=== PATIENT | female | born 1960 | race Native Hawaiian/Other Pacific Islander ===

== ENCOUNTER 2016-10-15 17:25 | Inpatient (IN) | payer OTHER ==
--- NOTE | 2016-10-15 18:12 | C.PDOC ---
History Of Present Illness 56 y/o female presents to the ED with complaints of easy fatigability and generalized weakness for the past several years worsening the past few weeks. Pt with history of low BP, bradycardia, pacemaker in 2011. Pt states ever since had pacemaker, she feels easily fatigued, wakes up with very low blood pressure. Pt had recent cardiac cath, unknown results. Pt also complaining of chest discomfort last night which she usually doesn't have. Denies SOB, fever, vomiting, diarrhea or any other complaints. Time Seen by Provider: 10/15/16 18:00 Chief Complaint (Nursing): Chest Pain History Per: Patient History/Exam Limitations: no limitations Onset/Duration Of Symptoms: Days Current Symptoms Are (Timing): Worse Severity: Moderate Exacerbating Factors: None Alleviating Factors: None Recent travel outside of the [place]: No Past Medical History Reviewed: Historical Data, Nursing Documentation, Vital Signs Vital Signs: Last Vital Signs Temp 98.4 F 10/15/16 17:51 Pulse 64 10/15/16 18:58 Resp 20 10/15/16 18:58 BP 134/57 L 10/15/16 18:58 Pulse Ox 100 10/15/16 18:58 - Medical History PMH: Cardia Arrhythmia, Mitral Valve Prolapse (2011) Family History: States: Unknown Family Hx - Social History Hx Alcohol Use: No Hx Substance Use: No - Immunization History Hx Tetanus Toxoid Vaccination: No Hx Influenza Vaccination: No Review Of Systems Except As Marked, All Systems Reviewed And Found Negative. Constitutional: Positive for: Weakness, Other (fatigue). Negative for: Fever Cardiovascular: Positive for: Chest Pain Respiratory: Negative for: Shortness of Breath Gastrointestinal: Negative for: Vomiting Physical Exam - Physical Exam Appears: Non-toxic, No Acute Distress Skin: Warm, Dry, No Rash Head: Atraumatic, Normacephalic Neck: Normal, Normal ROM, Supple Chest: Symmetrical, No Tenderness Cardiovascular: Rhythm Regular, No Murmur Respiratory: Normal Breath Sounds, No Rales, No Rhonchi, No Wheezing Gastrointestinal/Abdominal: Normal Exam, Soft, No Tenderness, No Guarding, No Rebound Extremity: Normal ROM Extremity: Bilateral: Atraumatic Neurological/Psych: Oriented x3, Normal Speech ED Course And Treatment - Laboratory Results Result Diagrams: 10/15/16 18:16 10/15/16 18:16 Lab Interpretation: Abnormal (WBC 15.6, Hgb 9.9, Hct 30.7, BUN 24) ECG: Interpreted By Me ECG Rhythm: AV Paced (with LVH) ECG Interpretation: No Acute Changes O2 Sat by Pulse Oximetry: 99 (room air) Pulse Ox Interpretation: Normal - Radiology CXR: Viewed By Me, Read By Radiologist CXR Interpretation: Yes: Other (? mass like density RML) Progress Note: Plan: EKG, labs, CXR, UA, IV fluids Reevaluation Time: 19:14 Reassessment Condition: Unchanged - Physician Consult Information Time Consulting Physician Contacted: 19:14 Physician Contacted: Anderson Sloan Outcome Of Conversation: Patient has declining cardiac function and is getting worse recently. CT chest ordered in ED, R/O mass Disposition - Disposition Disposition: HOSPITALIZED Disposition Time: 19:15 Condition: STABLE Instructions: Weakness (ED) - POA Present On Arrival: None - Clinical Impression Clinical Impression: Lung mass, Weakness generalized, Anemia - Scribe Statement The provider has reviewed the documentation as recorded by the Khadijah Trevino Provider Attestation: All medical record entries made by the Khadijah were at my direction and personally dictated by me. I have reviewed the chart and agree that the record accurately reflects my personal performance of the history, physical exam, medical decision making, and the department course for this patient. I have also personally directed, reviewed, and agree with the discharge instructions and disposition.
[2016-10-15 18:20] LABS: BASO # 0.1 K/uL (0.0-0.2); BASO % 0.3 % (0.0-2.0); EOS # 0.2 K/uL (0.0-0.7); EOS % 1.6 % (0.0-4.0); HEMATOCRIT 30.7 % (34.0-47.0); LYMPH # 4.1 K/uL (1.0-4.3); MEAN CORPUSCULAR HEMOGLOBIN 27.6 pg (27.0-31.0); MEAN CORPUSCULAR HGB CONC 32.4 g/dL (33.0-37.0); MONO # 1.5 K/uL (0.0-0.8); MONO % 9.7 % (0.0-10.0); RED CELL DISTRIBUTION WIDTH 12.9 % (11.5-14.5); WHITE BLOOD COUNT 15.6 K/uL (4.8-10.8)
[2016-10-15 18:31] LABS: CHLORIDE 100 mmol/L (98-107); POTASSIUM 4.2 mmol/L (3.6-5.2); SODIUM 135 mmol/L (132-148)
[2016-10-15 18:34] LABS: ALB/GLOB RATIO 1.1 (1.0-2.1); ALKALINE PHOSPHATASE 73 U/L (38-126); ALT/SGPT 19 U/L (9-52); AST/SGOT 21 U/L (14-36); BILIRUBIN,TOTAL 0.6 mg/dL (0.2-1.3); BLOOD UREA NITROGEN 24 mg/dL (7-17); CARBON DIOXIDE 28 mmol/L (22-30); GFR AFRICAN-AMERICAN > 60; GLUCOSE,RANDOM 97 mg/dL (65-105); TOTAL PROTEIN 6.8 g/dL (6.3-8.3)
[2016-10-15 18:35] LABS: CALCIUM 8.6 mg/dl (8.6-10.4)
--- NOTE | 2016-10-15 18:56 | RAD ---
HISTORY: chest pain COMPARISON: None available TECHNIQUE: Chest, one view. FINDINGS: LUNGS: Somewhat rounded opacity abutting the right heart border of unclear etiology. Please note that chest x-ray has limited sensitivity for the detection of pulmonary masses. PLEURA: No significant pleural effusion identified. No definite pneumothorax . CARDIOVASCULAR: Left-sided pacemaker with leads in expected location of the right atrium and right ventricle. Heart size appears within normal limits. OSSEOUS STRUCTURES: No acute osseous abnormality identified. VISUALIZED UPPER ABDOMEN: Elevation of the right hemidiaphragm. OTHER FINDINGS: None. IMPRESSION: Somewhat rounded opacity abutting the right heart border of uncertain etiology. Recommend CT of the chest with IV contrast for further assessment. Dual lead left-sided pacemaker.
[2016-10-15 19:04] LABS: FREE T4 1.2 ng/dL (0.78-2.19)
[2016-10-15] MEDS ORDERED: Sodium Chloride 0.9% 1,000 ML IV ONE (19:11)
[2016-10-15 19:18] LABS: THYROID STIMULATING HORMONE 0.62 mIU/L (0.46-4.68)
[2016-10-15 19:39] LABS: RBC URINE < 1 /hpf (0-3); URINE BACTERIA RARE (<OCC); URINE BILIRUBIN NEGATIVE (NEGATIVE); URINE BLOOD NEGATIVE (NEGATIVE); URINE COLOR Straw (YELLOW); URINE GLUCOSE (UA) NORMAL (Normal); URINE KETONE NEGATIVE (NEGATIVE); URINE LEUKOCYTE ESTERASE NEG Leu/uL (Negative); URINE PROTEIN NEGATIVE (NEGATIVE); URINE UROBILINOGEN NORMAL mg/dL (0.2-1.0); WBC URINE 1 /hpf (0-5)
--- NOTE | 2016-10-15 21:02 | CT ---
EXAM: CT Chest Without Intravenous Contrast CLINICAL HISTORY: 56 years old, female; Pain; Chest pain; Right-sided chest pain; Additional info: R/O mass rml TECHNIQUE: Axial computed tomography images of the chest without intravenous contrast. This CT exam was performed using one or more of the following dose reduction techniques: automated exposure control, adjustment of the mA and/or kV according to patient size, and/or use of iterative reconstruction technique. Coronal and sagittal reformatted images were created and reviewed. EXAM DATE/TIME: 10/15/2016 7:10 PM COMPARISON: There are no prior studies for comparison. FINDINGS: Lungs and pleural spaces: Trachea and main bronchi are patent. There is no pneumothorax. There are no effusions. There is a mildly spiculated 11.1 x 9.4 x 10.0 mm right upper lobe nodule, image 59 series 4, image 48 series 601. There are 2 smaller right upper lobe nodules, 5.4 x 4.4 x 7 mm and 4.7 x 8.1 x 8.8 mm, image 58 series 4. There is nodular scarring in the anterior periphery of the right upper lobe. There is almost complete right middle lobe atelectasis. There is a 5.8 x 5.8 x 5.2 mm left upper lobe nodule, image 51 series 4, image 64 series 601. There is an adjacent 1.8 x 2.7 x 3.7 mm nodule. There are tree in bud opacities peripheral to the nodules. There is minimal scarring in the lingula. Lower lobes are well inflated and clear. Heart and vasculature: Heart size is normal. There is no pericardial effusion.Aorta and main pulmonary artery are normal in caliber. Mediastinum: There are small mildly enlarged mediastinal nodes.Dipti are not optimally evaluated without contrast material. The esophagus is unremarkable. There is a small hiatal hernia. Thyroid: Thyroid is not optimally imaged. Gland is enlarged and nodular. There is substernal extension greatest on the right. Bones/joints: There are degenerative early changes in the spine. Soft tissues: unremarkable Upper abdomen: There are no acute abnormalities in the visualized portion of the abdomen. Tubes, lines and devices: There is streak artifact from a pacemaker in the left chest wall. There is streak artifact from pacemaker leads. IMPRESSION: Almost complete right middle lobe atelectasis; bilateral upper lobe pulmonary nodules, malignancy cannot be excluded; normal heart size with pacemaker; goiter Footer: As per Fleischner Society guidelines for follow-up and management of pulmonary nodules: Recommend initial follow-up chest CT at 3, 9 and 24 months. Consider contrast enhanced chest CT, PET scan and/or biopsy as clinically warranted.
[2016-10-15] MEDS: Dextrose 5%/0.9% NS 1,000 ML IV SCH (22:32)
[2016-10-15] MEDS: cefTRIAXone IV 1 gm in Dextros 50 ML IVPB SCH (22:33)
[2016-10-16 07:26] LABS: HEMATOCRIT 28.8 % (34.0-47.0); MEAN CELL VOLUME 85.3 fL (81.0-99.0); MEAN CORPUSCULAR HEMOGLOBIN 28.2 pg (27.0-31.0); MEAN CORPUSCULAR HGB CONC 33.1 g/dL (33.0-37.0); MEAN PLATELET VOLUME 7.2 fL (7.2-11.7); RED CELL DISTRIBUTION WIDTH 12.5 % (11.5-14.5); WHITE BLOOD COUNT 12.1 K/uL (4.8-10.8)
--- NOTE | 2016-10-16 08:43 | CP.PCM.HP ---
History of Present Illness - History of Present Illness History of Present Illness: CC: Fatigue 56 y/o female with Childhood asthma, Chr Hypotensuin, s/p PM placement. Patient seen 2 weeks ago c/o vern increase fatigue and cough w/ yellow mucus. Patient treated as Asthma exacerbation. Cough is now dry but getting episodes of chest heaviness and vern fatigue. She would go to the bathroom from bed and require to sit in between. She was seen in office / BP 70/40. She was sent to ER. On ER, she has increase in pulm mass by CT & WBC is 15 w/ anemia Present on Admission - Present on Admission Any Indicators Present on Admission: Yes History of Uncontrolled Diabetes: No Urinary Catheter: No Decubitus Ulcer Present: No Review of Systems - Review of Systems Systems not reviewed;Unavailable: Unstable Vital Signs - Constitutional Constitutional: Anorexia - EENT Eyes: Blurred Vision. absent: Diplopia, Exophthalmos, Loss of Peripheral Vision , Loss of Vision Ears: absent: Decreased Hearing Nose/Mouth/Throat: absent: Post Nasal Drip, Bleeding Gums, Hoarsness, Mouth Pain , Sore Throat - Cardiovascular Cardiovascular: Chest Pain at Rest, Dyspnea, Dyspnea on Exertion, Palpitations. absent: Diaphoresis, Edema, Leg Edema, Leg Ulcers - Respiratory Respiratory: Cough, Dyspnea. absent: Hemoptysis, Pain on Inspiration, Chest Congestion, Excessive Mucous Production - Gastrointestinal Gastrointestinal: absent: Dysphagia, Heartburn, Loose Stools, Nausea - Genitourinary Genitourinary: absent: Difficulty Urinating, Dysuria, Hematuria, Pyuria - Integumentary Integumentary: absent: Acne, Bleeding Lesions, Rash, Skin Pain - Neurological Neurological: Weakness. absent: Abnormal Gait, Focal Weakness, Headaches, Restless Legs, Syncope Past Patient History - Past Medical History & Family History Past Medical History?: Yes - Past Social History Smoking Status: Former Smoker - CARDIAC Hx Cardia Arrhythmia: Yes Hx Mitral Valve Prolapse: Yes (2011) - PULMONARY Other/Comment: bronchoscopy 2004 - MUSCULOSKELETAL/RHEUMATOLOGICAL Hx Falls: No - GENITOURINARY/GYNECOLOGICAL Hx Genitourinary Disorders: Yes - PSYCHIATRIC Hx Substance Use: No - ANESTHESIA Hx Anesthesia: Yes Hx Anesthesia Reactions: No Has any member of the family had a problem w/ anesthesia?: No Meds Allergies/Adverse Reactions: Allergies Allergy/AdvReac Type Severity Reaction Status Date / Time No Known Allergies Allergy Unverified 10/15/16 17:49 Physical Exam - Constitutional Appears: No Acute Distress - Eye Exam Eye Exam: Normal appearance - ENT Exam ENT Exam: Mucous Membranes Moist - Neck Exam Neck exam: Positive for: Full Rom. Negative for: Lymphadenopathy, Thyromegaly - Respiratory Exam Respiratory Exam: Decreased Breath Sounds. absent: Rales, Rhonchi, Wheezes - Cardiovascular Exam Cardiovascular Exam: REGULAR RHYTHM, +S1, +S2. absent: Gallop, JVD - GI/Abdominal Exam GI & Abdominal Exam: Soft. absent: Mass, Tenderness Results - Vital Signs Recent Vital Signs: Last Vital Signs Temp 98.1 F 10/16/16 08:00 Pulse 70 10/16/16 08:00 Resp 20 10/16/16 08:00 BP 130/82 10/16/16 08:00 Pulse Ox 98 10/16/16 08:00 - Labs Result Diagrams: 10/16/16 07:06 10/15/16 18:16 Labs: Laboratory Results - last 24 hr 10/15/16 10/16/16 19:39 07:06 WBC 12.1 H RBC 3.38 L Hgb 9.5 L Hct 28.8 L MCV 85.3 MCH 28.2 MCHC 33.1 RDW 12.5 Plt Count 285 MPV 7.2 Urine Color Straw Urine Clarity Clear Urine pH 6.0 Ur Specific [place] 1.004 Urine Protein Negative Urine Glucose (UA) Normal Urine Ketones Negative Urine Blood Negative Urine Nitrate Negative Urine Bilirubin Negative Urine Urobilinogen Normal Ur Leukocyte Esterase Neg Urine WBC (Auto) 1 Urine RBC (Auto) < 1 Ur Squamous Epith Cells 2 Urine Bacteria Rare - EKG Data EKG Interpreted by: Myself Rate: Normal - Impressions Impression: Pacemaker rhythm Assessment & Plan - Assessment and Plan (Free Text) Assessment: Vern Fatigue w/ chest heaviness; Pulm mass w/ R mid lobe atelectasis. Had normal Cardiac Cath in [facility] (2014) - reportedly normal Await Pulm opinion. On Rocephin c/o inc WBC
[2016-10-16] MEDS: Dextrose 5%/0.9% NS 1,000 ML IV SCH (08:48)
[2016-10-16] MEDS: Enoxaparin 40 mg Syringe SC SCH (09:49)
[2016-10-16 10:36] LABS: ABG ALLEN TEST POS; ARTERIAL BLOOD HGB O2 SAT 96.6 % (95.0-98.0); CARBOXYHEMOGLOBIN 2.1 % (0.5-1.5); DRAW SITE RRA; METHEMOGLOBIN 1.3 % (0.0-3.0)
--- NOTE | 2016-10-16 11:52 | CP.PCM.CON ---
History of Present Illness - History of Present Illness History of Present Illness: reason for consultation : chest tightness, weakness and shortness of breath 56 y/o female presents to the ED with complaints of easy fatigability and generalized weakness for the past several years worsening the past few weeks. Pt with history of low BP, bradycardia, pacemaker in 2011. Pt states ever since had pacemaker, she feels easily fatigued, wakes up with very low blood pressure. Pt had recent cardiac cath, unknown results. Pt also complaining of chest discomfort last night which she usually doesn't have. Denies SOB, fever, vomiting, diarrhea or any other complaints. patient states she had bronchoscopy and biopsy of lung done in 2006 with abnormal CAT scan of the chest/lung mass Review of Systems - Review of Systems All systems: reviewed and no additional remarkable complaints except (chest tightness and shortness of breath/weakness) Past Patient History - Past Medical History & Family History Past Medical History?: Yes - Past Social History Smoking Status: Former Smoker - CARDIAC Hx Cardia Arrhythmia: Yes Hx Mitral Valve Prolapse: Yes (2011) - PULMONARY Other/Comment: bronchoscopy 2004 - MUSCULOSKELETAL/RHEUMATOLOGICAL Hx Falls: No - GENITOURINARY/GYNECOLOGICAL Hx Genitourinary Disorders: Yes - PSYCHIATRIC Hx Substance Use: No - ANESTHESIA Hx Anesthesia: Yes Hx Anesthesia Reactions: No Has any member of the family had a problem w/ anesthesia?: No Meds Allergies/Adverse Reactions: Allergies Allergy/AdvReac Type Severity Reaction Status Date / Time No Known Allergies Allergy Unverified 10/15/16 17:49 - Medications Medications: Current Medications Enoxaparin Sodium (Lovenox) 40 mg SC DAILY [facility] Last Admin: 10/16/16 09:49 Dose: 40 mg Ceftriaxone Sodium (Rocephin Iv 1 Gm Duplex) 50 mls @ 100 mls/hr IVPB Q24H [facility] Last Admin: 10/15/16 22:33 Dose: 100 mls/hr Physical Exam - Constitutional Appears: No Acute Distress - Head Exam Head Exam: ATRAUMATIC, NORMOCEPHALIC - Eye Exam Eye Exam: Normal appearance Results - Vital Signs Recent Vital Signs: Last Vital Signs Temp 98.1 F 10/16/16 08:00 Pulse 70 10/16/16 08:00 Resp 20 10/16/16 08:00 BP 130/82 10/16/16 08:00 Pulse Ox 98 10/16/16 08:00 - Labs Result Diagrams: 10/16/16 07:06 10/15/16 18:16 Labs: Laboratory Results - last 24 hr 10/15/16 10/16/16 10/16/16 19:39 07:06 10:32 WBC 12.1 H RBC 3.38 L Hgb 9.5 L Hct 28.8 L MCV 85.3 MCH 28.2 MCHC 33.1 RDW 12.5 Plt Count 285 MPV 7.2 Puncture Site Rra pCO2 34 L pO2 107 H HCO3 24.9 ABG pH 7.45 ABG Total CO2 24.6 ABG O2 Saturation 100.0 H ABG Base Excess -0.1 ABG Hemoglobin 9.7 L ABG Carboxyhemoglobin 2.1 H POC ABG HHb (Measured) 0.0 ABG Methemoglobin 1.3 Issa Test Pos A-a O2 Difference 0.0 Respiratory Index 0 Hgb O2 Saturation 96.6 FiO2 21.0 Urine Color Straw Urine Clarity Clear Urine pH 6.0 Ur Specific [place] 1.004 Urine Protein Negative Urine Glucose (UA) Normal Urine Ketones Negative Urine Blood Negative Urine Nitrate Negative Urine Bilirubin Negative Urine Urobilinogen Normal Ur Leukocyte Esterase Neg Urine WBC (Auto) 1 Urine RBC (Auto) < 1 Ur Squamous Epith Cells 2 Urine Bacteria Rare Assessment & Plan (1) Atelectasis Status: Acute Comment: fiberoptic bronchoscopy and possible biopsy tomorrow. Started on nebulizer treatment (2) Anemia Status: Acute (3) Lung mass Status: Acute
[2016-10-16] MEDS: Albuterol-Ipratrop 3 mg / 0.5 (3 ml) UD INH SCH (21:15)
[2016-10-16] MEDS: cefTRIAXone IV 1 gm in Dextros 50 ML IVPB SCH (21:33)
[2016-10-17] MEDS: Albuterol-Ipratrop 3 mg / 0.5 (3 ml) UD INH SCH ×4 (02:01→20:41)
--- NOTE | 2016-10-17 08:20 | CP.PCM.PN ---
Subjective - Date & Time of Evaluation Date of Evaluation: 10/17/16 Time of Evaluation: 08:10 - Subjective Subjective: Pt very fatigue just going to bath room. Chest heaviness " feel my lungs is going to explode" - in tagalog. No SOB t rest. refuse albuterol c/o make her cough more. No n/v, no diarrhea. Cardiac cath in [facility] - reportedly normal Objective - Vital Signs/Intake and Output Vital Signs (last 24 hours): Temp Pulse Resp BP Pulse Ox 98.4 F 80 20 103/66 97 10/17/16 08:16 10/17/16 08:16 10/17/16 08:16 10/17/16 08:16 10/17/16 08:16 - Medications Medications: Current Medications Albuterol/Ipratropium (Duoneb 3 Mg/0.5 Mg (3 Ml) Ud) 3 ml INH RQ6 [facility] Last Admin: 10/17/16 02:01 Dose: Not Given Enoxaparin Sodium (Lovenox) 40 mg SC DAILY [facility] Last Admin: 10/16/16 09:49 Dose: 40 mg Ceftriaxone Sodium (Rocephin Iv 1 Gm Duplex) 50 mls @ 100 mls/hr IVPB Q24H [facility] Last Admin: 10/16/16 21:33 Dose: 100 mls/hr Lactulose (Enulose) 20 gm PO BID [facility] Last Admin: 10/16/16 18:25 Dose: 20 gm - Labs Labs: 10/16/16 07:06 - Constitutional Appears: No Acute Distress - Eye Exam Eye Exam: Normal appearance - ENT Exam ENT Exam: Mucous Membranes Moist - Neck Exam Neck Exam: absent: Lymphadenopathy - Respiratory Exam Respiratory Exam: Clear to Ausculation Bilateral. absent: Chest Wall Tenderness , Rales, Rhonchi, Wheezes - Cardiovascular Exam Cardiovascular Exam: +S1, +S2, Murmur. absent: Gallop, REGULAR RHYTHM, JVD - GI/Abdominal Exam GI & Abdominal Exam: Soft. absent: Tenderness, Mass - Extremities Exam Extremities Exam: Full ROM, Normal Capillary Refill. absent: Calf Tenderness, Joint Swelling, Pedal Edema Assessment and Plan - Assessment and Plan (Free Text) Assessment: Pulm Mass w/ R middle lobe atelectasis Chr Hypotension s/p Pacemeaker placement For Bronchoscopy/ biopsy Continue meds
[2016-10-17] MEDS: Enoxaparin 40 mg Syringe SC SCH (10:12)
[2016-10-17] MEDS ORDERED: EPINEPHrine 1 mg/ml (1:1000) Inj ONE (14:03)
[2016-10-17] MEDS ORDERED: Lidocaine 2% Inj (20ml) ONE (14:03)
[2016-10-17] MEDS ORDERED: Lactated Ringer's 1,000 ML IV ONE (14:20)
[2016-10-17] MEDS ORDERED: Albuterol 0.083% Inhal Sol (2.5 mg/3 mL) UD INH ONE (15:06)
--- NOTE | 2016-10-17 15:39 | RAD ---
PROCEDURE: Fluoroscopy up to 1 hr. HISTORY: RT.LUNG COLLAPSE COMPARISON: None TECHNIQUE: Standard protocol for this study/examination. FINDINGS: Total fluoroscopic time (continuous mode) utilized during the procedure: 22.5 seconds. IMPRESSION: Less than 1 hr fluoroscopic time utilized during performance of the procedure.
--- NOTE | 2016-10-17 16:05 | CP.PCM.PN ---
Subjective - Date & Time of Evaluation Date of Evaluation: 10/17/16 Time of Evaluation: 15:00 - Subjective Subjective: patient seen and examined. Status post bronchoscopy, bronchoalveolar lavage, brushing and biopsy Objective - Vital Signs/Intake and Output Vital Signs (last 24 hours): Temp Pulse Resp BP Pulse Ox 98.4 F 80 20 103/66 97 10/17/16 08:16 10/17/16 08:16 10/17/16 08:16 10/17/16 08:16 10/17/16 08:16 - Medications Medications: Current Medications Albuterol/Ipratropium (Duoneb 3 Mg/0.5 Mg (3 Ml) Ud) 3 ml INH RQ6 [facility] Last Admin: 10/17/16 13:13 Dose: Not Given Enoxaparin Sodium (Lovenox) 40 mg SC DAILY [facility] Last Admin: 10/17/16 10:12 Dose: Not Given Ceftriaxone Sodium (Rocephin Iv 1 Gm Duplex) 50 mls @ 100 mls/hr IVPB Q24H [facility] Last Admin: 10/16/16 21:33 Dose: 100 mls/hr Lactulose (Enulose) 20 gm PO BID [facility] Last Admin: 10/17/16 10:12 Dose: Not Given Ondansetron HCl (Zofran Inj) 4 mg IVP ONCE PRN PRN Reason: Nausea/Vomiting Stop: 10/17/16 17:06 - Head Exam Head Exam: ATRAUMATIC, NORMOCEPHALIC - Eye Exam Eye Exam: Normal appearance - ENT Exam ENT Exam: Mucous Membranes Moist - Neck Exam Neck Exam: Normal Inspection - Respiratory Exam Respiratory Exam: Decreased Breath Sounds - Cardiovascular Exam Cardiovascular Exam: REGULAR RHYTHM Assessment and Plan (1) Atelectasis Assessment & Plan: Status post bronchoscopy consistent with edema/swelling and purulent mucous secretions Status post biopsy and brushing Start antibiotics Followup pathology Status: Acute (2) Anemia Status: Acute (3) Lung mass Status: Acute
[2016-10-17] MEDS ORDERED: Azithromycin 500 MG in Sodium Chloride 0.9% 250 ML IVPB SCH (16:15)
--- NOTE | 2016-10-17 16:21 | RAD ---
PROCEDURE: CHEST RADIOGRAPH, 1 VIEW HISTORY: Rule out pneumothorax post bronchoscopy. COMPARISON: Comparison made with prior chest radiograph and CT scan chest both dated 10/15/16 FINDINGS: LUNGS: Rounded opacity in the right infrahilar region extending into the medial aspect right lung base. There appears be some mild biapical pleural thickening. PLEURA: No definitive evidence of pneumothorax. No effusion seen. CARDIOVASCULAR: No change bipolar pacemaker. Heart size within range of normal. OSSEOUS STRUCTURES: No significant abnormalities. VISUALIZED UPPER ABDOMEN: Normal. OTHER FINDINGS: None. IMPRESSION: No evidence of pneumothorax. Rounded masslike density right infrahilar region and right medial lung base. No other changes.
--- NOTE | 2016-10-17 17:11 | CARD ---
APPROVED REPORT EXAM: Two-dimensional and M-mode echocardiogram with Doppler and color Doppler. Other Information Quality : GoodRhythm : INDICATION Dyspnea Fatigue Surgery/Intervention Pacemaker: M-Mode DIMENSIONS RVDd1.40 (2.1-3.2cm)Left Atrium (MM)2.37 (2.5-4.0cm) IVSd1.12 (0.7-1.1cm)Aortic Root3.10 (2.2-3.7cm) LVDd4.65 (4.0-5.6cm)Aortic Cusp Exc.1.67 (1.5-2.0cm) PWd1.12 (0.7-1.1cm)FS (%) 49 % LVDs2.37 (2.0-3.8cm)LVEF (%)80 (>50%) Aortic Valve AI P 1/2 [id number] Mitral Valve MV E Ocycnlog32.1cm/sMV A Uzvunuft38.6cm/sE/A ratio0.9 TDI E/Lateral E'0.0E/Medial E'0.0 Tricuspid Valve TR Peak [id number]/sRAP [id number] Peak Gr.26mmHg [id number] LEFT VENTRICLE The left ventricle is normal size. There is normal left ventricular wall thickness. The left ventricular function is normal. The left ventricular ejection fraction is within the normal range. There is normal LV segmental wall motion. The left ventricular diastolic function is normal. RIGHT VENTRICLE The right ventricle is normal size. The right ventricular systolic function is normal. There is a pacemaker lead in the right ventricle. ATRIA The left atrium size is normal. The right atrium size is normal. There is a pacemaker lead seen in the right atrium. AORTIC VALVE The aortic valve is normal in structure. There is trace to mild aortic regurgitation. MITRAL VALVE The mitral valve is normal in structure. Mitral regurgitation is mild. TRICUSPID VALVE The tricuspid valve is normal in structure. There is mild tricuspid regurgitation. Right ventricular systolic pressure is estimated at 31 mmHg. PULMONIC VALVE The pulmonic valve is not well visualized. GREAT VESSELS The aortic root is normal in size. The IVC is normal in size and collapses >50% with inspiration. PERICARDIAL EFFUSION There is no pericardial effusion. <Conclusion> Normal biventricular function. Mild aortic, mitral and tricuspid regurgitation. Pacemaker wires in right heart. No pericardial effusion.
[2016-10-17] MEDS: Azithromycin 500 MG in Sodium Chloride 0.9% 250 ML IVPB SCH (18:36)
--- NOTE | 2016-10-17 18:37 | OP ---
PROCEDURE DATE: 10/17/2016 PROCEDURE: Fiberoptic bronchoscopy with bronchoalveolar lavage, brushing and biopsy. INDICATION: Right middle lung atelectasis and infiltrate. DESCRIPTION OF PROCEDURE: Fiberoptic bronchoscopy procedure was done after obtaining consent from stephen torres explaining to the patient risks and benefits, which she understood. The procedure was done und er sedation by the anesthesiologist. The nose and the throat were prepared with lidocaine. The bron choscope was passed through the left nostril into the throat. There was normal movement of vocal cor ds. After instilling lidocaine, the bronchoscope was advanced into the trachea. The trachea appeare d normal. The main jakob was sharp. First, the bronchoscope was passed on the left side, which heri eared normal. No endobronchial lesions seen. Small amount of purulent secretions noted, which was s uctioned out. Later the bronchoscope was pulled back and passed on the right side. The right main, the right upper bronchus intermedius, right lower lobe, all appeared normal. Slight edema and narrow ing of the right middle lobe noted with inflammation. Brushing and biopsy was done under fluoroscopy . Also, bronchoalveolar lavage was done. The patient tolerated the procedure well. No complication s. Arnulfo Caballero MD cc: 9 TT: 10/17/2016 18:36:54 [email or web address]
[2016-10-17] MEDS: cefTRIAXone IV 1 gm in Dextros 50 ML IVPB SCH (22:00)
[2016-10-18] MEDS: Albuterol-Ipratrop 3 mg / 0.5 (3 ml) UD INH SCH ×4 (01:33→21:12)
--- NOTE | 2016-10-18 08:11 | CP.PCM.PN ---
Subjective - Date & Time of Evaluation Date of Evaluation: 10/18/16 Time of Evaluation: 07:45 - Subjective Subjective: Pt feels well; Goes to bath room and has to sit before she reaches her bed. Chest heaviness is more constant (Negative Cath on 2014; no SOB at rest Bronch report noted; (+) purulent secreation; BP low this morning Objective - Vital Signs/Intake and Output Vital Signs (last 24 hours): Temp Pulse Resp BP Pulse Ox 98.2 F 78 20 72/52 L 97 10/18/16 00:00 10/18/16 00:00 10/18/16 00:00 10/18/16 08:00 10/18/16 00:00 - Medications Medications: Current Medications Albuterol/Ipratropium (Duoneb 3 Mg/0.5 Mg (3 Ml) Ud) 3 ml INH RQ6 [facility] Last Admin: 10/18/16 07:37 Dose: 3 ml Enoxaparin Sodium (Lovenox) 40 mg SC DAILY [facility] Last Admin: 10/17/16 10:12 Dose: Not Given Ceftriaxone Sodium (Rocephin Iv 1 Gm Duplex) 50 mls @ 100 mls/hr IVPB Q24H [facility] Last Admin: 10/17/16 22:00 Dose: 100 mls/hr Azithromycin 500 mg/ Sodium (Chloride) 250 mls @ 250 mls/hr IVPB Q24H [facility] Last Admin: 10/17/16 18:36 Dose: 250 mls/hr Lactulose (Enulose) 20 gm PO BID [facility] Last Admin: 10/17/16 17:57 Dose: Not Given Midodrine (Proamatine) 2.5 mg PO BID [facility] - Constitutional Appears: No Acute Distress - Eye Exam Eye Exam: Normal appearance - ENT Exam ENT Exam: Mucous Membranes Moist - Neck Exam Neck Exam: Full ROM. absent: Lymphadenopathy, Normal Inspection - Cardiovascular Exam Cardiovascular Exam: REGULAR RHYTHM, +S1, +S2. absent: Diastolic murmur, Gallop , JVD - GI/Abdominal Exam GI & Abdominal Exam: Soft. absent: Tenderness, Mass - Extremities Exam Extremities Exam: Calf Tenderness, Normal Capillary Refill. absent: Full ROM, Joint Swelling, Pedal Edema Assessment and Plan - Assessment and Plan (Free Text) Assessment: Pulm mass w/ infection ( Pneumonia) Chronic Hypotension; s/p Hypotension h/o of childhood Asthma Restart Midodrine; Cont meds (On Rocephin/ Azithro)
[2016-10-18] MEDS: Sodium Chloride 0.9% 1,000 ML IV SCH ×2 (08:45→18:01)
[2016-10-18] MEDS: Enoxaparin 40 mg Syringe SC SCH ×2 (09:23→09:24)
[2016-10-18] MEDS: Azithromycin 500 MG in Sodium Chloride 0.9% 250 ML IVPB SCH (17:53)
--- NOTE | 2016-10-18 18:25 | CP.PCM.PN ---
Subjective - Date & Time of Evaluation Date of Evaluation: 10/18/16 Time of Evaluation: 14:25 - Subjective Subjective: patient seen and examined. Complaining off generalized weakness Slight cough but no shortness of breath Objective - Vital Signs/Intake and Output Vital Signs (last 24 hours): Temp Pulse Resp BP Pulse Ox 97.8 F 89 20 133/76 96 10/18/16 16:15 10/18/16 16:15 10/18/16 16:15 10/18/16 16:15 10/18/16 16:15 - Medications Medications: Current Medications Albuterol/Ipratropium (Duoneb 3 Mg/0.5 Mg (3 Ml) Ud) 3 ml INH RQ6 [facility] Last Admin: 10/18/16 14:23 Dose: 3 ml Enoxaparin Sodium (Lovenox) 40 mg SC DAILY [facility] Last Admin: 10/18/16 09:24 Dose: Not Given Ceftriaxone Sodium (Rocephin Iv 1 Gm Duplex) 50 mls @ 100 mls/hr IVPB Q24H [facility] Last Admin: 10/17/16 22:00 Dose: 100 mls/hr Azithromycin 500 mg/ Sodium (Chloride) 250 mls @ 250 mls/hr IVPB Q24H [facility] Last Admin: 10/18/16 17:53 Dose: 250 mls/hr Sodium Chloride (Sodium Chloride 0.9%) 1,000 mls @ 100 mls/hr IV .Q10H [facility] Last Admin: 10/18/16 18:01 Dose: 100 mls/hr Lactulose (Enulose) 20 gm PO BID [facility] Last Admin: 10/18/16 17:53 Dose: 20 gm Midodrine (Proamatine) 2.5 mg PO BID [facility] Last Admin: 10/18/16 18:00 Dose: Not Given - Head Exam Head Exam: ATRAUMATIC, NORMOCEPHALIC - Eye Exam Eye Exam: Normal appearance - ENT Exam ENT Exam: Mucous Membranes Moist - Neck Exam Neck Exam: Full ROM, Normal Inspection - Respiratory Exam Respiratory Exam: Clear to Ausculation Bilateral - Cardiovascular Exam Cardiovascular Exam: REGULAR RHYTHM - GI/Abdominal Exam GI & Abdominal Exam: Soft, Normal Bowel Sounds Assessment and Plan (1) Atelectasis Assessment & Plan: status post bronchoscopy Continue antibiotics Follow bronchial washing and biopsy Status: Acute (2) Anemia Status: Acute (3) Lung mass Status: Acute
[2016-10-18] MEDS: cefTRIAXone IV 1 gm in Dextros 50 ML IVPB SCH (21:40)
[2016-10-19] MEDS: Albuterol-Ipratrop 3 mg / 0.5 (3 ml) UD INH SCH ×3 (01:06→20:12)
[2016-10-19] MEDS: Sodium Chloride 0.9% 1,000 ML IV SCH ×2 (03:40→22:11)
--- NOTE | 2016-10-19 07:12 | CP.PCM.CON ---
History of Present Illness - History of Present Illness History of Present Illness: I was asked to evaluate patient by Dr. Sloan. Tia is a 56 year old female with a history of bradycardia who is s/p PPM (St , [place]), HTN who presents with extreme fatigue and dyspnea. Patient states symptoms are chronic. However more recently she has noted worsening fatigue. She has chest pain at times, but is not clearly associated with exertion. Review of Systems - Constitutional Constitutional: Fatigue - EENT Eyes: absent: As Per HPI, Blind Spots, Blurred Vision, Change in Vision, Decreased Night Vision, Diplopia, Discharge, Dry Eye, Exophthalmos, Floaters, Irritation, Itchy Eyes, Loss of Peripheral Vision, Pain, Photophobia, Requires Corrective Lenses, Sees Flashes, Spots in Vision, Tunnel Vision, Other Visual Disturbances, Loss of Vision, Other Ears: absent: As Per HPI, Decreased Hearing, Ear Discharge, Ear Pain, Tinnitus, Abnormal Hearing, Disequilibrium, Dizziness, Other Nose/Mouth/Throat: absent: As Per HPI, Epistaxis, Nasal Congestion, Nasal Discharge, Nasal Obstruction, Nasal Trauma, Nose Pain, Post Nasal Drip, Sinus Pain, Sinus Pressure, Bleeding Gums, Change in Voice, Dental Pain, Dry Mouth, Dysphagia, Halitosis, Hoarsness, Lip Swelling, Mouth Lesions, Mouth Pain, Odynophagia, Sore Throat, Throat Swelling, Tongue Swelling, Facial Pain, Neck Pain, Neck Mass, Other - Cardiovascular Cardiovascular: Dyspnea. absent: As Per HPI, Acrocyanosis, Chest Pain, Chest Pain at Rest, Chest Pain with Activity, Claudication, Diaphoresis, Dyspnea on Exertion, Edema, Irregular Heart Rhythm, Pain Radiating to Arm/Neck/Jaw, Leg Edema, Leg Ulcers, Lightheadedness, Orthopnea, Palpitations, Paroxysmal Nocturnal Dyspnea, Pedal Edema, Radiating Pain, Rapid Heart Rate, Slow Heart Rate, Syncope, Other - Respiratory Respiratory: Dyspnea - Gastrointestinal Gastrointestinal: absent: As Per HPI, Abdominal Pain, Belching, Bloating, Change in Bowel Habits, Change in Stool Character, Coffee Ground Emesis, Constipation, Cramping, Diarrhea, Dyspepsia, Dysphagia, Early Satiety, Excessive Flatus, Fecal Incontinence, Heartburn, Hematemesis, Hematochezia, Loose Stools, Melena, Nausea, Odynophagia, Temesmus, Vomiting, Other - Genitourinary Genitourinary: absent: As Per HPI, Change in Urinary Stream, Difficulty Urinating, Dysuria, Flank Pain, Hematuria, Pyuria, Nocturia, Urinary Incontinence, Urinary Frequency, Urinary Hesitance, Urinary Urgency, Voiding Freq/Small Amts, Freq UTI, Hx Renal/Bladder Calculi, Hx /Renal Surgery, Bladder Distension, Other - Menstruation Menstruation: absent: As Per HPI, Amenorrhea, Amenorrhea/ Control, Currently Menstual, Cycle <21 Days, Cycle >35 Days, Cycle Variable, Menses 1-7 Days, Menses >/= 8 Days, Menses Variable, Cycle > 4 Weeks Between, No Menses for 6 Months, Heavy Menses, Light Menses, Normal Menses, Spotting Between Cycles , S/P Hysterectomy, Menopausal, Post Menopausal, Premenarche, Abnormal Vaginal Bleeding, Dysmenorrhea, Other - Musculoskeletal Musculoskeletal: absent: As Per HPI, Abnormal Gait, Arthralgias, Atrophy, Back Pain, Deformity, Joint Swelling, Limited Range of Motion, Loss of Height, Muscle Cramps, Muscle Weakness, Myalgias, Neck Pain, Numbness, Radiating Pain into Limb, Stiffness, Tingling, Other - Integumentary Integumentary: absent: As Per HPI, Acne, Alopecia, Bleeding Lesions, Change in Hair, Change in Nails, Change in Pigmentation, Changing Lesions, Dry Skin, Erythema, Furuncle, Hirsutism, Lesions, New Lesions, Non-Healing Lesions, Photosensitivity, Pruritus, Rash, Skin Pain, Skin Ulcer, Sores, Striae, Swelling , Unusual Bruising, Wounds, Jaundice, Other - Neurological Neurological: absent: As Per HPI, Abnormal Gait, Abnormal Hearing, Abnormal Movements, Abnormal Speech, Behavioral Changes, Burning Sensations, Confusion, Convulsions, Disequilibrium, Dizziness, Numbness, Focal Weakness, Frequent Falls , Headaches, Lack of Coordination, Loss of Vision, Memory Loss, Paresthesias, Radicular Pain, Restless Legs, Sensory Deficit, Syncope, Tingling, Tremor, Vertigo, Weakness, Other Visual Disturbances, Other - Psychiatric Psychiatric: absent: As Per HPI, Abnormal Sleep Pattern, Anhedonia, Anxiety, Auditory Hallucinations, Behavioral Changes, Change in Appetite, Change in Libido, Confusion, Depression, Difficulty Concentrating, Hallucinations, Homicidal Ideation, Hopelessness, Irritability, Memory Loss, Mood Swings, Panic Attacks, Paranoia, Suicidal Ideation, Visual Hallucinations, Tactile Hallucinations, Other - Endocrine Endocrine: absent: As Per HPI, Change in Body Appearance, Change in Libido, Cold Intolorance, Deepening of Voice, Excessive Sweating, Fatigue, Flushing, Heat Intolorance, Increase in Ring/Shoe/Hat Size, Palpitations, Polydipsia, Polyphagia, Polyuria, Other - Hematologic/Lymphatic Hematologic: absent: As Per HPI, Easy Bleeding, Easy Bruising, Lymphadenopathy, Other Past Patient History - Past Medical History & Family History Past Medical History?: Yes - Past Social History Smoking Status: Former Smoker - CARDIAC Hx Cardia Arrhythmia: Yes Hx Mitral Valve Prolapse: Yes (2011) - PULMONARY Other/Comment: bronchoscopy 2004 - MUSCULOSKELETAL/RHEUMATOLOGICAL Hx Falls: No - GENITOURINARY/GYNECOLOGICAL Hx Genitourinary Disorders: Yes - PSYCHIATRIC Hx Substance Use: No - ANESTHESIA Hx Anesthesia: Yes Hx Anesthesia Reactions: No Has any member of the family had a problem w/ anesthesia?: No Meds Allergies/Adverse Reactions: Allergies Allergy/AdvReac Type Severity Reaction Status Date / Time No Known Allergies Allergy Unverified 10/15/16 17:49 - Medications Medications: Current Medications Albuterol/Ipratropium (Duoneb 3 Mg/0.5 Mg (3 Ml) Ud) 3 ml INH RQ6 [facility] Last Admin: 10/19/16 01:06 Dose: Not Given Enoxaparin Sodium (Lovenox) 40 mg SC DAILY [facility] Last Admin: 10/18/16 09:24 Dose: Not Given Ceftriaxone Sodium (Rocephin Iv 1 Gm Duplex) 50 mls @ 100 mls/hr IVPB Q24H [facility] Last Admin: 10/18/16 21:40 Dose: 100 mls/hr Azithromycin 500 mg/ Sodium (Chloride) 250 mls @ 250 mls/hr IVPB Q24H [facility] Last Admin: 10/18/16 17:53 Dose: 250 mls/hr Sodium Chloride (Sodium Chloride 0.9%) 1,000 mls @ 100 mls/hr IV .Q10H [facility] Last Admin: 10/19/16 03:40 Dose: Not Given Lactulose (Enulose) 20 gm PO BID [facility] Last Admin: 10/18/16 17:53 Dose: 20 gm Midodrine (Proamatine) 2.5 mg PO BID [facility] Last Admin: 10/18/16 18:00 Dose: Not Given Physical Exam - Constitutional Appears: Non-toxic - Head Exam Head Exam: NORMAL INSPECTION - Eye Exam Eye Exam: Normal appearance - ENT Exam ENT Exam: Mucous Membranes Moist - Neck Exam Neck exam: Positive for: Full Rom - Respiratory Exam Respiratory Exam: Decreased Breath Sounds - Cardiovascular Exam Cardiovascular Exam: REGULAR RHYTHM - GI/Abdominal Exam GI & Abdominal Exam: Normal Bowel Sounds - Rectal Exam Rectal Exam: Deferred - Extremities Exam Extremities exam: Negative for: pedal edema - Back Exam Back exam: NORMAL INSPECTION - Neurological Exam Neurological exam: Alert, Oriented x3 - Psychiatric Exam Psychiatric exam: Normal Affect - Skin Skin Exam: Normal Color Results - Vital Signs Recent Vital Signs: Last Vital Signs Temp 98 F 10/18/16 23:46 Pulse 84 10/19/16 00:00 Resp 20 10/18/16 23:46 BP 122/79 10/18/16 23:46 Pulse Ox 98 10/18/16 23:46 - Labs Result Diagrams: 10/16/16 07:06 10/15/16 18:16 - EKG Data EKG Interpreted by: Myself Assessment & Plan (1) Pacemaker Assessment and Plan: I reviewed the EKG. Patient has an atrial paced rhythm. will need scheduling of pacemaker interrogation to see if there is rate responsiveness programmed in. Status: Acute (2) Dyspnea Assessment and Plan: uncleasr etiology. normal left ventricular function. no valvular dysfunction Status: Acute (3) Hypotension Assessment and Plan: thyroid function test normal. follow up cortisol level. consider use of midodrine Status: Acute
[2016-10-19] MEDS: Enoxaparin 40 mg Syringe SC SCH (10:08)
--- NOTE | 2016-10-19 11:14 | CP.PCM.PN ---
Subjective - Date & Time of Evaluation Date of Evaluation: 10/19/16 Time of Evaluation: 11:11 - Subjective Subjective: S: C/o weakness. No SOB, chstpain or fever. Objective - Vital Signs/Intake and Output Vital Signs (last 24 hours): Temp Pulse Resp BP Pulse Ox 97.9 F 75 20 110/69 97 10/19/16 07:55 10/19/16 07:55 10/19/16 07:55 10/19/16 07:55 10/19/16 07:55 - Medications Medications: Current Medications Albuterol/Ipratropium (Duoneb 3 Mg/0.5 Mg (3 Ml) Ud) 3 ml INH RQ6 [facility] Last Admin: 10/19/16 08:16 Dose: 3 ml Enoxaparin Sodium (Lovenox) 40 mg SC DAILY [facility] Last Admin: 10/19/16 10:08 Dose: Not Given Ceftriaxone Sodium (Rocephin Iv 1 Gm Duplex) 50 mls @ 100 mls/hr IVPB Q24H [facility] Last Admin: 10/18/16 21:40 Dose: 100 mls/hr Azithromycin 500 mg/ Sodium (Chloride) 250 mls @ 250 mls/hr IVPB Q24H [facility] Last Admin: 10/18/16 17:53 Dose: 250 mls/hr Sodium Chloride (Sodium Chloride 0.9%) 1,000 mls @ 100 mls/hr IV .Q10H [facility] Last Admin: 10/19/16 03:40 Dose: Not Given Lactulose (Enulose) 20 gm PO BID [facility] Last Admin: 10/19/16 10:08 Dose: Not Given Midodrine (Proamatine) 2.5 mg PO BID [facility] Last Admin: 10/19/16 10:13 Dose: 2.5 mg - Constitutional Appears: Chronically Ill - Head Exam Head Exam: NORMAL INSPECTION - Eye Exam Eye Exam: Normal appearance - ENT Exam ENT Exam: Normal Exam - Neck Exam Neck Exam: Normal Inspection - Respiratory Exam Respiratory Exam: NORMAL BREATHING PATTERN - Cardiovascular Exam Cardiovascular Exam: REGULAR RHYTHM - GI/Abdominal Exam GI & Abdominal Exam: Soft - Rectal Exam Rectal Exam: Deferred - Extremities Exam Extremities Exam: Normal Inspection Assessment and Plan (1) Weakness generalized Assessment & Plan: Plans: check bronchoscopy findings. GI and Endocrine cinsult Status: Chronic (2) Anemia Status: Chronic (3) Lung mass Status: Acute (4) Pacemaker Status: Chronic
--- NOTE | 2016-10-19 16:48 | CP.PCM.PN ---
Subjective - Date & Time of Evaluation Date of Evaluation: 10/19/16 Time of Evaluation: 13:00 - Subjective Subjective: patient feels better today. started on midodrine Objective - Vital Signs/Intake and Output Vital Signs (last 24 hours): Temp Pulse Resp BP Pulse Ox 97.9 F 87 20 110/69 97 10/19/16 07:55 10/19/16 08:00 10/19/16 07:55 10/19/16 07:55 10/19/16 07:55 - Medications Medications: Current Medications Albuterol/Ipratropium (Duoneb 3 Mg/0.5 Mg (3 Ml) Ud) 3 ml INH RQ6 [facility] Last Admin: 10/19/16 08:16 Dose: 3 ml Enoxaparin Sodium (Lovenox) 40 mg SC DAILY [facility] Last Admin: 10/19/16 10:08 Dose: Not Given Ceftriaxone Sodium (Rocephin Iv 1 Gm Duplex) 50 mls @ 100 mls/hr IVPB Q24H [facility] Last Admin: 10/18/16 21:40 Dose: 100 mls/hr Azithromycin 500 mg/ Sodium (Chloride) 250 mls @ 250 mls/hr IVPB Q24H [facility] Last Admin: 10/18/16 17:53 Dose: 250 mls/hr Sodium Chloride (Sodium Chloride 0.9%) 1,000 mls @ 100 mls/hr IV .Q10H [facility] Last Admin: 10/19/16 03:40 Dose: Not Given Lactulose (Enulose) 20 gm PO BID [facility] Last Admin: 10/19/16 10:08 Dose: Not Given Midodrine (Proamatine) 2.5 mg PO BID [facility] Last Admin: 10/19/16 10:13 Dose: 2.5 mg - Constitutional Appears: Non-toxic - Head Exam Head Exam: NORMAL INSPECTION - Eye Exam Eye Exam: Normal appearance - ENT Exam ENT Exam: Mucous Membranes Moist - Neck Exam Neck Exam: Full ROM - Respiratory Exam Respiratory Exam: NORMAL BREATHING PATTERN - Cardiovascular Exam Cardiovascular Exam: REGULAR RHYTHM - GI/Abdominal Exam GI & Abdominal Exam: Normal Bowel Sounds - Rectal Exam Rectal Exam: Deferred - Extremities Exam Extremities Exam: absent: Pedal Edema - Back Exam Back Exam: NORMAL INSPECTION - Neurological Exam Neurological Exam: Alert - Psychiatric Exam Psychiatric exam: Normal Affect - Skin Skin Exam: Normal Color Assessment and Plan (1) Pacemaker Assessment & Plan: outpateint pacemaker interrogation Status: Chronic (2) Dyspnea Assessment & Plan: per pulmonary mgmt Status: Acute (3) Hypotension Assessment & Plan: feels better with midodrine Status: Acute
[2016-10-19] MEDS: Azithromycin 500 MG in Sodium Chloride 0.9% 250 ML IVPB SCH (17:50)
--- NOTE | 2016-10-19 19:26 | CON ---
DATE: 10/19/2016 LOCATION; Room 555, [address]. HISTORY OF PRESENT ILLNESS: This is a 56-year-old female with a longstanding history of hypertension and recent placement of a pacemaker because of significant bradycardia and is now admitted because o f worsening generalized body weakness with hypotension and is being referred now for endocrine evalua tion and management. PAST MEDICAL HISTORY: History of bronchial asthma with previous admissions for exacerbation of the s anitha, history of hypertensive cardiovascular disease and dyslipidemia, history of cardiac bradyarrhyth mias with significant marked bradycardia requiring pacemaker insertion as noted, history of chronic h ypotension, etiology of which has to be ascertained and is currently on ProAmatine given as 2.5 mg b. i.d. as noted. FAMILY HISTORY: Positive for hypertension and heart disease. SOCIAL HISTORY: The patient has supportive family. Has a previous history of smoking, but quit a fe w years ago. REVIEW OF SYSTEMS: As mentioned above, admits to generalized body weakness with easy fatigability an d tiredness, worse in the last few weeks prior to admission with severe bouts of dizziness and lighth eadedness and near syncopal episodes as noted. Also, admits to precordial tightness and pressure wit h progressive shortness of breath, especially on exertion with marked dyspnea also on exertion and as sociated marked generalized body weakness. Her oral intake has been variable with nausea, dyspepsia, and vague upper abdominal pains. Also, admits to episodic constipation. PHYSICAL EXAMINATION: GENERAL: A female in no apparent distress. VITAL SIGNS: Blood pressure initially of 90/70, pulse of 100 beats per minute and regular, temperatu re 98, respirations 20. Height is 5 foot 2 inches, weight is 130 pounds. HEENT: Head normocephalic. Eyes anicteric with pink conjunctivae. Fundoscopy not possible at this time. Ears, nose and throat otherwise normal. NECK: Supple. Thyroid gland is normal size. No carotid bruits. No cervical adenopathy. CARDIOPULMONARY: Has an adynamic precordium. S1, S2 is rapid and regular. LUNGS: Clear to auscultation. ABDOMEN: Flat, soft with positive bowel sounds. EXTREMITIES: No peripheral edema. Pulses are +2 bilaterally. LABORATORY DATA: Chemistries showed a BUN of 24, sodium 135, potassium 4.2, chloride 100, CO2 of 28, glucose 97 and creatinine 1.0. Her thyroid study showed a TSH of 0.62 and a free T4 of 1.20. She a lso had a bronchoscopy undertaken at this time and the findings have been noted otherwise. ASSESSMENT: This is a 56-year-old female with significant symptomatic bradycardia and underwent a pa cemaker insertion and continues to have constitutional and neuroglycopenic symptoms with easy fatigab ility and tiredness and severe bouts of dizziness and lightheadedness with supervening hypotension on admission as noted thereof. The hypotension has been somehow chronic pain in terms of documentation but the cardiac workup so far has not shown any significant findings with a normal cardiac catheteri zation and echocardiogram as noted. She has been placed on ProAmatine medications for hypotension as noted. The possibility of an endocrine related etiology for hypotension is being requested at this time. Although quite remote, but possible, we have to exclude any underlying hypoadrenalism at this time, although biochemically her electrolytes are within optimal range as noted. PLAN OF MANAGEMENT: Will continue the ProAmatine medications as ordered at a dose of 2.5 mg b.i.d. Will obtain a baseline serum cortisol and ACTH level for tomorrow morning and also include a plasma a ldosterone level as noted. Will continue the IV hydration as given and if necessary, will do a Cortr osyn stimulation test as indicated. Will follow. Soheila Barrios MD cc: [phone] TT: 10/19/2016 19:26:22 Confirmation # [id number] Dictation # [id number]
[2016-10-19] MEDS: cefTRIAXone IV 1 gm in Dextros 50 ML IVPB SCH (21:57)
[2016-10-20] MEDS: Sodium Chloride 0.9% 1,000 ML IV SCH (00:51)
[2016-10-20] MEDS: Albuterol-Ipratrop 3 mg / 0.5 (3 ml) UD INH SCH ×4 (01:58→19:17)
[2016-10-20 06:15] LABS: HEMATOCRIT 28.1 % (34.0-47.0); MEAN CELL VOLUME 85.4 fL (81.0-99.0); MEAN CORPUSCULAR HEMOGLOBIN 28.1 pg (27.0-31.0); MEAN PLATELET VOLUME 7.4 fL (7.2-11.7); RED CELL DISTRIBUTION WIDTH 12.8 % (11.5-14.5); WHITE BLOOD COUNT 8.7 K/uL (4.8-10.8)
[2016-10-20 06:23] LABS: CHLORIDE 105 mmol/L (98-107)
[2016-10-20 06:24] LABS: SODIUM 139 mmol/L (132-148)
[2016-10-20 06:25] LABS: IRON 57 ug/dL (37-170)
[2016-10-20 06:26] LABS: ALKALINE PHOSPHATASE 66 U/L (38-126); AST/SGOT 25 U/L (14-36); BILIRUBIN,TOTAL 0.4 mg/dL (0.2-1.3); BLOOD UREA NITROGEN 10 mg/dL (7-17); CARBON DIOXIDE 28 mmol/L (22-30); GFR AFRICAN-AMERICAN > 60; GLUCOSE,RANDOM 119 mg/dL (65-105); TOTAL PROTEIN 6.6 g/dL (6.3-8.3)
[2016-10-20 06:27] LABS: ALT/SGPT 28 U/L (9-52); CALCIUM 8.3 mg/dl (8.6-10.4)
[2016-10-20 06:58] LABS: CORTISOL AM 10.5 ug/dL (4.46-22.7)
--- NOTE | 2016-10-20 08:52 | CP.PCM.PN ---
Subjective - Date & Time of Evaluation Date of Evaluation: 10/20/16 Time of Evaluation: 08:35 - Subjective Subjective: Pt no complain; Still SOB & fatigue/ Chest heaviness WBC improved but not symptoms persist;neg Quantiferonl ; neg culture except fungal Objective - Vital Signs/Intake and Output Vital Signs (last 24 hours): Temp Pulse Resp BP Pulse Ox 98.1 F 70 18 124/78 99 10/19/16 23:53 10/20/16 00:00 10/19/16 23:53 10/19/16 23:53 10/19/16 23:53 - Medications Medications: Current Medications Albuterol/Ipratropium (Duoneb 3 Mg/0.5 Mg (3 Ml) Ud) 3 ml INH RQ6 [facility] Last Admin: 10/20/16 07:53 Dose: Not Given Enoxaparin Sodium (Lovenox) 40 mg SC DAILY [facility] Last Admin: 10/19/16 10:08 Dose: Not Given Ceftriaxone Sodium (Rocephin Iv 1 Gm Duplex) 50 mls @ 100 mls/hr IVPB Q24H [facility] Last Admin: 10/19/16 21:57 Dose: 100 mls/hr Azithromycin 500 mg/ Sodium (Chloride) 250 mls @ 250 mls/hr IVPB Q24H [facility] Last Admin: 10/19/16 17:50 Dose: 250 mls/hr Midodrine (Proamatine) 2.5 mg PO BID [facility] Last Admin: 10/19/16 17:49 Dose: Not Given - Labs Labs: 10/20/16 06:02 10/20/16 06:02 - Constitutional Appears: No Acute Distress - Eye Exam Eye Exam: Normal appearance - ENT Exam ENT Exam: Mucous Membranes Moist - Neck Exam Neck Exam: Full ROM. absent: Lymphadenopathy, Normal Inspection - Respiratory Exam Respiratory Exam: Decreased Breath Sounds. absent: Rales, Rhonchi, Wheezes - Cardiovascular Exam Cardiovascular Exam: REGULAR RHYTHM, +S1, +S2. absent: Gallop, JVD - Extremities Exam Extremities Exam: Calf Tenderness, Full ROM, Normal Capillary Refill. absent: Joint Swelling, Pedal Edema Assessment and Plan - Assessment and Plan (Free Text) Assessment: Chris worsening fatigue; lung mass w/ R lobe atelectasis/ Pneumonia s/p PM placement wait Bronch report ? malignant transformation of mass cont meds
[2016-10-20 09:39] VITALS: RESP 20
[2016-10-20] MEDS: Enoxaparin 40 mg Syringe SC SCH ×2 (11:15→11:17)
--- NOTE | 2016-10-20 11:46 | CP.PCM.PN ---
Subjective - Date & Time of Evaluation Date of Evaluation: 10/20/16 Time of Evaluation: 09:10 - Subjective Subjective: Patient seen and examined. Still complaining of weakness Denies cough but complaining of shortness of breath Objective - Vital Signs/Intake and Output Vital Signs (last 24 hours): Temp Pulse Resp BP Pulse Ox 97.6 F 82 20 93/61 L 96 10/20/16 09:37 10/20/16 09:37 10/20/16 09:37 10/20/16 09:37 10/20/16 09:37 - Medications Medications: Current Medications Albuterol/Ipratropium (Duoneb 3 Mg/0.5 Mg (3 Ml) Ud) 3 ml INH RQ6 [facility] Last Admin: 10/20/16 07:53 Dose: Not Given Enoxaparin Sodium (Lovenox) 40 mg SC DAILY [facility] Last Admin: 10/20/16 11:17 Dose: Not Given Ceftriaxone Sodium (Rocephin Iv 1 Gm Duplex) 50 mls @ 100 mls/hr IVPB Q24H [facility] Last Admin: 10/19/16 21:57 Dose: 100 mls/hr Azithromycin 500 mg/ Sodium (Chloride) 250 mls @ 250 mls/hr IVPB Q24H [facility] Last Admin: 10/19/16 17:50 Dose: 250 mls/hr Midodrine (Proamatine) 2.5 mg PO BID [facility] Last Admin: 10/20/16 11:15 Dose: 2.5 mg - Labs Labs: 10/20/16 06:02 10/20/16 06:02 - Head Exam Head Exam: ATRAUMATIC, NORMOCEPHALIC - Eye Exam Eye Exam: Normal appearance - ENT Exam ENT Exam: Mucous Membranes Moist - Neck Exam Neck Exam: Normal Inspection - Respiratory Exam Respiratory Exam: Clear to Ausculation Bilateral - Cardiovascular Exam Cardiovascular Exam: REGULAR RHYTHM - GI/Abdominal Exam GI & Abdominal Exam: Soft, Normal Bowel Sounds Assessment and Plan (1) Atelectasis Assessment & Plan: continue antibiotics Awaiting pathology report Awaiting for culture and sensitivity Status: Acute (2) Anemia Status: Chronic (3) Lung mass Status: Acute
--- NOTE | 2016-10-20 16:28 | PN ---
DATE: 10/20/2016 LOCATION: Room 555. SUBJECTIVE: This is a 56-year-old female with significant cardiac vasculopathy and recent symptomati c bradycardia with pacemaker insertion, and now presents here with progressively worsening generalize d body weakness and supervening hypotension, as noted thereof. She has also been referred for endocr ine evaluation of possible hypoadrenalism or adrenal insufficiency. LABORATORY DATA: Her latest chemistries today showed a BUN of 10, sodium 139, potassium 4.0, chlori de 105, CO2 28, glucose 119, and creatinine 0.7. Her glucose levels have ranged from 97 to 116 mg/dL . Her serum cortisol level is 10.5 mcg/dL, with a TSH of 0.62 and free T4 of 1.20. ASSESSMENT AND PLAN: She actually is clinically and biochemically euadrenal and euthyroid at this ti mo, excluding any underlying endocrine-related etiology for the hypotension. The most likely etiolog y would be autonomic-related orthostatic hypotension and further cardiac workup will be undertaken th ereof for a possible tilt test to be done as an outpatient. Will continue her current dosing of ProA matine given as 2.5 mg b.i.d. as ordered. Will obtain serial chemistries and supplement accordingly as needed. There is also no indication at this time for any kind of ACTH stimulation test. Will fol low. Soheila Barrios MD cc: [id number] TT: 10/20/2016 16:27:45 Confirmation # [id number] Dictation # [id number] marion
[2016-10-20] MEDS: Azithromycin 500 MG in Sodium Chloride 0.9% 250 ML IVPB SCH (17:36)
[2016-10-20] MEDS: cefTRIAXone IV 1 gm in Dextros 50 ML IVPB SCH (21:06)
[2016-10-21] MEDS: Albuterol-Ipratrop 3 mg / 0.5 (3 ml) UD INH SCH ×3 (01:38→13:15)
[2016-10-21 07:37] VITALS: BP 94/56; PULSE 70; TEMP 97.5; O2SAT 97
--- NOTE | 2016-10-21 08:56 | CP.PCM.PN ---
Subjective - Date & Time of Evaluation Date of Evaluation: 10/21/16 Time of Evaluation: 08:45 - Subjective Subjective: Patient request to go home; Get weaker in hosp c/o less activity. Get heaviness in the chest - more in morning and improve w/ activity. Objective - Vital Signs/Intake and Output Vital Signs (last 24 hours): Temp Pulse Resp BP Pulse Ox 97.5 F L 70 20 94/56 L 97 10/21/16 07:36 10/21/16 07:36 10/21/16 07:36 10/21/16 07:36 10/21/16 07:36 Intake and Output: 10/21/16 10/21/16 06:59 18:59 Intake Total 660 Balance 660 - Medications Medications: Current Medications Albuterol/Ipratropium (Duoneb 3 Mg/0.5 Mg (3 Ml) Ud) 3 ml INH RQ6 [facility] Last Admin: 10/21/16 07:59 Dose: Not Given Enoxaparin Sodium (Lovenox) 40 mg SC DAILY [facility] Last Admin: 10/20/16 11:17 Dose: Not Given Azithromycin 500 mg/ Sodium (Chloride) 250 mls @ 250 mls/hr IVPB Q24H [facility] Last Admin: 10/20/16 17:36 Dose: 250 mls/hr Midodrine (Proamatine) 2.5 mg PO BID [facility] Last Admin: 10/20/16 17:38 Dose: Not Given - Labs Labs: 10/20/16 06:02 10/20/16 06:02 - Constitutional Appears: No Acute Distress - Eye Exam Eye Exam: Normal appearance - ENT Exam ENT Exam: Mucous Membranes Moist - Neck Exam Neck Exam: Full ROM. absent: Lymphadenopathy, Normal Inspection - Respiratory Exam Respiratory Exam: Clear to Ausculation Bilateral, NORMAL BREATHING PATTERN. absent: Chest Wall Tenderness, Rales, Rhonchi, Wheezes - Cardiovascular Exam Cardiovascular Exam: REGULAR RHYTHM, +S1, +S2. absent: Gallop, JVD, Murmur - GI/Abdominal Exam GI & Abdominal Exam: Soft. absent: Tenderness - Extremities Exam Extremities Exam: Full ROM, Normal Capillary Refill. absent: Calf Tenderness, Joint Swelling Assessment and Plan - Assessment and Plan (Free Text) Assessment: Pulm mass w/ Pneumonia; Chr Hypotension s/p PM placement Cont meds/ Negative culture but on Levaquin in OPD Discharge if clear c/o Pulmonary
[2016-10-21] MEDS: Enoxaparin 40 mg Syringe SC SCH (09:17)
--- NOTE | 2016-10-21 10:13 | CP.PCM.PN ---
Subjective - Date & Time of Evaluation Date of Evaluation: 10/21/16 Time of Evaluation: 09:45 - Subjective Subjective: patient has no current chest pain. fell lightheaded this am Objective - Vital Signs/Intake and Output Vital Signs (last 24 hours): Temp Pulse Resp BP Pulse Ox 97.5 F L 70 20 94/56 L 97 10/21/16 07:36 10/21/16 07:36 10/21/16 07:36 10/21/16 07:36 10/21/16 07:36 Intake and Output: 10/21/16 10/21/16 06:59 18:59 Intake Total 660 Balance 660 - Medications Medications: Current Medications Albuterol/Ipratropium (Duoneb 3 Mg/0.5 Mg (3 Ml) Ud) 3 ml INH RQ6 [facility] Last Admin: 10/21/16 07:59 Dose: Not Given Enoxaparin Sodium (Lovenox) 40 mg SC DAILY [facility] Last Admin: 10/21/16 09:17 Dose: Not Given Azithromycin 500 mg/ Sodium (Chloride) 250 mls @ 250 mls/hr IVPB Q24H [facility] Last Admin: 10/20/16 17:36 Dose: 250 mls/hr Midodrine (Proamatine) 2.5 mg PO BID [facility] Last Admin: 10/21/16 09:17 Dose: 2.5 mg - Labs Labs: 10/20/16 06:02 10/20/16 06:02 - Constitutional Appears: Non-toxic - Head Exam Head Exam: NORMAL INSPECTION - Eye Exam Eye Exam: Normal appearance - ENT Exam ENT Exam: Mucous Membranes Moist - Neck Exam Neck Exam: Full ROM - Respiratory Exam Respiratory Exam: NORMAL BREATHING PATTERN - Cardiovascular Exam Cardiovascular Exam: REGULAR RHYTHM - GI/Abdominal Exam GI & Abdominal Exam: Normal Bowel Sounds - Rectal Exam Rectal Exam: Deferred - Extremities Exam Extremities Exam: absent: Pedal Edema - Back Exam Back Exam: NORMAL INSPECTION - Neurological Exam Neurological Exam: Alert - Psychiatric Exam Psychiatric exam: Normal Affect - Skin Skin Exam: Normal Color Assessment and Plan (1) Pacemaker Status: Chronic (2) Dyspnea Status: Acute (3) Hypotension Assessment & Plan: orthostatic. recommend incrased middrine. patient states she was on Florinef in the past, but did not tolearate. Status: Acute
--- NOTE | 2016-10-21 11:19 | CP.PCM.PN ---
Subjective - Date & Time of Evaluation Date of Evaluation: 10/21/16 Time of Evaluation: 08:00 - Subjective Subjective: Patient seen and examined. Sitting comfortably in no acute distress Complaining of hypotension Bronchial washings negative for AFB and fungus Objective - Vital Signs/Intake and Output Vital Signs (last 24 hours): Temp Pulse Resp BP Pulse Ox 97.5 F L 70 20 94/56 L 97 10/21/16 07:36 10/21/16 07:36 10/21/16 07:36 10/21/16 07:36 10/21/16 07:36 Intake and Output: 10/21/16 10/21/16 06:59 18:59 Intake Total 660 Balance 660 - Medications Medications: Current Medications Albuterol/Ipratropium (Duoneb 3 Mg/0.5 Mg (3 Ml) Ud) 3 ml INH RQ6 [facility] Last Admin: 10/21/16 07:59 Dose: Not Given Enoxaparin Sodium (Lovenox) 40 mg SC DAILY [facility] Last Admin: 10/21/16 09:17 Dose: Not Given Azithromycin 500 mg/ Sodium (Chloride) 250 mls @ 250 mls/hr IVPB Q24H [facility] Last Admin: 10/20/16 17:36 Dose: 250 mls/hr Midodrine (Proamatine) 2.5 mg PO BID [facility] Last Admin: 10/21/16 09:17 Dose: 2.5 mg - Labs Labs: 10/20/16 06:02 10/20/16 06:02 - Head Exam Head Exam: ATRAUMATIC, NORMOCEPHALIC - Eye Exam Eye Exam: Normal appearance - ENT Exam ENT Exam: Mucous Membranes Moist - Neck Exam Neck Exam: Normal Inspection - Respiratory Exam Respiratory Exam: Clear to Ausculation Bilateral - Cardiovascular Exam Cardiovascular Exam: REGULAR RHYTHM - GI/Abdominal Exam GI & Abdominal Exam: Soft, Normal Bowel Sounds Assessment and Plan (1) Atelectasis Assessment & Plan: Awaiting pathology report Continue present treatment Follow-up in the office Status: Acute (2) Anemia Status: Chronic (3) Lung mass Status: Acute
[2016-10-21] MEDS ORDERED: Pneumococcal 23-Valent Vaccine IM ONE (14:18)
--- NOTE | 2016-10-21 15:57 | PN ---
DATE: 10/21/2016 ROOM: 555. This is a 56-year-old female with a recent bronchoscopy undertaken for a lung mass and associated ate lectasis, and is now also being followed closely for metabolic management. Her latest chemistries showed a BUN of 10, sodium 139, potassium 4.0, chloride 105, CO2 28, glucose 1 19 and creatinine 0.7. Her cortisol level is 10.5 mcg/dL with a TSH of 0.62 and free T4 of 1.20. She is clinically and biochemically euthyroid and euadrenal at this time as noted. The plan of care and the metabolic workup was discussed with the primary physician at bedside today as noted. Will co ntinue the present medical management as ordered. Will follow. Soheila Barrios MD cc: [phone] TT: 10/21/2016 15:57:20 Confirmation # [id number] Dictation # [id number] juan j
--- NOTE | 2016-10-23 01:24 | CARD ---
APPROVED REPORT EKG Measurement Heart [id number] <Conclusion> Atrial-paced rhythm Minimal voltage criteria for LVH, may be normal variant Abnormal ECG
--- NOTE | 2016-11-09 19:54 | CP.PCM.DIS ---
Provider - Provider Date of Admission: 10/17/16 11:14 56 y/o female with Asthma and seen for exacerbation about w 2 wks ago. Patient felt better but later felt vern fatigue. Pt gets SOB/ fatigue even walking less 200 ft. Pt also has a lung mass which is followed by her [employer]. However stop going to [employer] [employer] c/o "was doing nothing - no serial CT". Patient seen in ER and noted increase /wbc >15. Attending physician: Anderson Sloan MD Time Spent in preparation of Discharge (in minutes): 10 Hospital Course - Lab Results Lab Results: Micro Results 10/17/16 Unknown Other: Please Indicate Mycobacterial Culture - Preliminary 10/17/16 Unknown Bronchial Washings Bronchial Culture - Final NORMAL ORAL SUZANNE PRESENT 10/17/16 Unknown Bronchial Washings Fungal Culture - Final Nasreen Albicans Most Recent Lab Values WBC 8.7 K/uL (4.8-10.8) 10/20/16 06:02 RBC 3.29 Mil/uL (3.80-5.20) L 10/20/16 06:02 Hgb 9.3 g/dL (11.0-16.0) L 10/20/16 06:02 Hct 28.1 % (34.0-47.0) L 10/20/16 06:02 MCV 85.4 fL (81.0-99.0) 10/20/16 06:02 MCH 28.1 pg (27.0-31.0) 10/20/16 06:02 MCHC 33.0 g/dL (33.0-37.0) 10/20/16 06:02 RDW 12.8 % (11.5-14.5) 10/20/16 06:02 Plt Count 206 K/uL (130-400) 10/20/16 06:02 MPV 7.4 fL (7.2-11.7) 10/20/16 06:02 Neut % (Auto) 62.4 % (50.0-75.0) 10/15/16 18:16 Lymph % (Auto) 26.0 % (20.0-40.0) 10/15/16 18:16 [place] % (Auto) 9.7 % (0.0-10.0) 10/15/16 18:16 Eos % (Auto) 1.6 % (0.0-4.0) 10/15/16 18:16 Baso % (Auto) 0.3 % (0.0-2.0) 10/15/16 18:16 Neut # 9.8 K/uL (1.8-7.0) H 10/15/16 18:16 Lymph # 4.1 K/uL (1.0-4.3) 10/15/16 18:16 [place] # 1.5 K/uL (0.0-0.8) H 10/15/16 18:16 Eos # 0.2 K/uL (0.0-0.7) 10/15/16 18:16 Baso # 0.1 K/uL (0.0-0.2) 10/15/16 18:16 Puncture Site Rra 10/16/16 10:32 pCO2 34 mm/Hg (35-45) L 10/16/16 10:32 pO2 107 mm/Hg (80-100) H 10/16/16 10:32 HCO3 24.9 mmol/L (21-28) 10/16/16 10:32 ABG pH 7.45 (7.35-7.45) 10/16/16 10:32 ABG Total CO2 24.6 mmol/L (22-28) 10/16/16 10:32 ABG O2 Saturation 100.0 % (95-98) H 10/16/16 10:32 ABG Base Excess -0.1 mmol/L (-2.0-3.0) 10/16/16 10:32 ABG Hemoglobin 9.7 g/dL (11.7-17.4) L 10/16/16 10:32 ABG Carboxyhemoglobin 2.1 % (0.5-1.5) H 10/16/16 10:32 POC ABG HHb (Measured) 0.0 % (0.0-5.0) 10/16/16 10:32 ABG Methemoglobin 1.3 % (0.0-3.0) 10/16/16 10:32 Issa Test Pos 10/16/16 10:32 A-a O2 Difference 0.0 mm/Hg 10/16/16 10:32 Respiratory Index 0 10/16/16 10:32 Hgb O2 Saturation 96.6 % (95.0-98.0) 10/16/16 10:32 FiO2 21.0 % 10/16/16 10:32 Sodium 139 mmol/L (132-148) 10/20/16 06:02 Potassium 4.0 mmol/L (3.6-5.2) 10/20/16 06:02 Chloride 105 mmol/L (98-107) 10/20/16 06:02 Carbon Dioxide 28 mmol/L (22-30) 10/20/16 06:02 Anion Gap 11 (10-20) 10/20/16 06:02 BUN 10 mg/dL (7-17) 10/20/16 06:02 Creatinine 0.7 MG/DL (0.7-1.2) 10/20/16 06:02 Est GFR ( Amer) > 60 10/20/16 06:02 Est GFR (Non-Af Amer) > 60 10/20/16 06:02 POC Glucose (mg/dL) 116 mg/dL (65-110) H 10/17/16 06:16 Random Glucose 119 mg/dL (65-105) H 10/20/16 06:02 Calcium 8.3 mg/dl (8.6-10.4) L 10/20/16 06:02 Iron 57 ug/dL (37-170) 10/20/16 06:02 TIBC 256 ug/dL (250-450) 10/20/16 06:02 % Saturation 22 (20-55) 10/20/16 06:02 Ferritin 171.0 ng/mL 10/20/16 06:02 Total Bilirubin 0.4 mg/dL (0.2-1.3) 10/20/16 06:02 AST 25 U/L (14-36) 10/20/16 06:02 ALT 28 U/L (9-52) 10/20/16 06:02 Alkaline Phosphatase 66 U/L (38-126) 10/20/16 06:02 Troponin I < 0.0120 ng/mL (0.00-0.120) 10/15/16 18:16 NT-Pro-B Natriuret Pep 575 pg/mL (0-900) 10/15/16 18:16 Total Protein 6.6 g/dL (6.3-8.3) 10/20/16 06:02 Albumin 3.3 g/dL (3.5-5.0) L 10/20/16 06:02 Globulin 3.3 gm/dL (2.2-3.9) 10/20/16 06:02 Albumin/Globulin Ratio 1.0 (1.0-2.1) 10/20/16 06:02 Procalcitonin < 0.50 NG/ML (0.19-0.49) H 10/17/16 19:50 Free T4 1.20 ng/dL (0.78-2.19) 10/15/16 18:16 TSH 3rd Generation 0.62 mIU/L (0.46-4.68) 10/15/16 18:16 Cortisol AM Sample 10.5 ug/dL (4.46-22.7) 10/20/16 06:02 ACTH 22 pg/mL (6-50) 10/20/16 06:02 Urine Color Straw (YELLOW) 10/15/16 19:39 Urine Clarity Clear (Clear) 10/15/16 19:39 Urine pH 6.0 (5.0-8.0) 10/15/16 19:39 Ur Specific [place] 1.004 (1.003-1.030) 10/15/16 19:39 Urine Protein Negative mg/dL (NEGATIVE) 10/15/16 19:39 Urine Glucose (UA) Normal mg/dL (Normal) 10/15/16 19:39 Urine Ketones Negative mg/dL (NEGATIVE) 10/15/16 19:39 Urine Blood Negative (NEGATIVE) 10/15/16 19:39 Urine Nitrate Negative (NEGATIVE) 10/15/16 19:39 Urine Bilirubin Negative (NEGATIVE) 10/15/16 19:39 Urine Urobilinogen Normal mg/dL (0.2-1.0) 10/15/16 19:39 Ur Leukocyte Esterase Neg Alyssia/uL (Negative) 10/15/16 19:39 Urine WBC (Auto) 1 /hpf (0-5) 10/15/16 19:39 Urine RBC (Auto) < 1 /hpf (0-3) 10/15/16 19:39 Ur Squamous Epith Cells 2 /hpf (0-5) 10/15/16 19:39 Urine Bacteria Rare (<OCC) 10/15/16 19:39 Urine HCG, Qual Negative (NEGATIVE) 10/17/16 11:40 TB Test (QFT) Nil 0.01 IU/mL 10/16/16 07:06 TB Test Mitogen - Nil >10.00 IU/mL 10/16/16 07:06 TB Test TB - Nil 0.05 IU/mL 10/16/16 07:06 TB Test (QFT) Negative (Negative) 10/16/16 07:06 - Hospital Course Hospital Course: Pt admitted for prob Pneumonia and lung mass. She was sen c/o Cardio, Plmonary and Endocrine. Work uo was repeated and include Bronchoscopy, CT - benign mass Negative Thyroid & adreanal pathology. 2-D is normal. Patient felt slightly better & discharged Discharge Exam - Head Exam Head Exam: ATRAUMATIC, NORMOCEPHALIC - Eye Exam Eye Exam: Normal appearance - ENT Exam ENT Exam: Mucous Membranes Moist - Neck Exam Neck exam: Full Rom - Respiratory Exam Respiratory Exam: Decreased Breath Sounds, Rhonchi, Wheezes. absent: Rales, NORMAL BREATHING PATTERN - Cardiovascular Exam Cardiovascular Exam: REGULAR RHYTHM, +S1, +S2. absent: Gallop, JVD - GI/Abdominal Exam GI & Abdominal Exam: Soft. absent: Pulsatile Mass, Tenderness - Extremities Exam Extremities exam: full ROM, normal capillary refill, pedal pulses present Discharge Plan - Discharge Medications Prescriptions: Azithromycin [Zithromax] 500 mg PO DAILY #5 tablet - Follow Up Plan Condition: STABLE Disposition: HOME/ ROUTINE Instructions: Azithromycin (By mouth), Midodrine (By mouth), Chronic Hypertension (DC), Hypotension (DC), Weakness (ED) Additional Instructions: Please f/u with Dr. 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
== END 2016-10-21 15:45 | disposition home or self-care (01) | DRG 167 ==
LOC: C.ER 17:25 → INTOOBSV 19:15 → C.9E 19:15 → C.5T 19:44 → OBSVTOIN 10-17 11:14
PROVIDERS: ADMIT Internal Medicine; ATTEND Internal Medicine
PROC: 0B9D8ZX Drainage of Right Middle Lung Lobe, Via Natural or Artificial Opening Endoscopic, Diagnostic (ICD-10-PCS; 2016-10-17)
PROC: 0BBD8ZX Excision of Right Middle Lung Lobe, Via Natural or Artificial Opening Endoscopic, Diagnostic (ICD-10-PCS; principal; 2016-10-17 13:30)
DX: J18.9 Pneumonia, unspecified organism (principal); J98.11 Atelectasis; I95.89 Other hypotension; J45.901 Unspecified asthma with (acute) exacerbation; I11.9 Hypertensive heart disease without heart failure; D64.9 Anemia, unspecified; E78.5 Hyperlipidemia, unspecified; I34.1 Nonrheumatic mitral (valve) prolapse; Z87.891 Personal history of nicotine dependence; Z95.0 Presence of cardiac pacemaker